=== PATIENT | female | born 1975 | race Caucasian/White ===

== ENCOUNTER → 2017-07-24 | Outpatient (CLI) | payer OTHER ==
[~2017-07-24] MED LIST: CYCL5TAB PO; LABE1TAB28 PO; LORA-741 PO; OMEP10CA4 PO; POLY335019 PO; TAMO20TA9 PO; ZLDI SQ
[2017-07-24 07:38] VITALS: BP 113/76; PULSE 70; TEMP 36.8; O2SAT 98
--- NOTE | 2017-07-24 09:04 | Radiation Oncology Follow-Up ---
Radiation Oncology Follow-Up Date of Visit Jul 24, 2017. 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 She received 6240 cGy. Last Edited By: Tana Gomez on Jul 24, 2017 09:06 History of Present Illness Ms. Ortiz has a fraternal grandmother who was diagnosed with breast cancer in her 40s or 50s and from breast cancer at age 63. The patient was nursing her 1-year- old child when she noted a lump in the left breast and axillary region. She thought it was related to a clogged milk duct been tried massage but the lesion persisted. The patient was therefore scheduled to be seen for evaluation of this area. She underwent diagnostic bilateral mammograms on 08/25/2016. This showed extremely dense breast tissue with pleomorphic calcifications in the upper outer quadrant at the 2 to 3 o'clock position. There were several prominent lymph nodes in the left axilla with thickened cortices. A stereotactic left breast biopsy of the microcalcifications as well as an ultrasound-guided biopsy of the largest lymph node was recommended. Right breast mammogram was unremarkable. On 08/26/2016 patient underwent a biopsy of the upper outer quadrant of the left breast which revealed an infiltrating carcinoma of no special type, grade 2. 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 The biopsy of the left axillary node revealed metastatic carcinoma. The lesion was strongly estrogen receptor positive and weakly progesterone receptor positive. HER-2/georgina" protein expression was equivocal but confirmed negative by FISH analysis. Accession #: [id number]. The patient underwent bilateral breast MRIs with without contrast on 09/02/2016. The right breast showed no suspicious mass or [id number] enhancement seen. In the left breast there was abnormal enhancement in the lateral central left breast at the 2 to 4:00 middle posterior depth measuring at least 5.8 x 2.3 x 5.2 cm. It is thought this may possibly underestimate the extent of disease due to extensive calcification seen on mammogram. Left axillary adenopathy was also noted corresponding to the biopsy- proven infiltrating carcinoma and metastatic axillary lymph node disease. The largest lymph nodes measured 2.1 x 1.1 x 2.7 cm and 1.7 x 1.4 x 1.0 cm. Patient underwent genetic testing and there was no evidence of significant genetic abnormality of BRCA1 or BRCA2. There was a variant of the CHEK2 gene of uncertain significance. Patient was seen by Dr. Jon for evaluation of the role of neoadjuvant chemotherapy. A PET/CT scan was performed on 09/11/2016. This showed metabolically active left lateral breast mass as well as multiple metabolically active left axillary lymph nodes. There was however no evidence of distant metastatic disease appreciated. He recommended dose dense Adriamycin and Cytoxan followed by weekly Paclitaxel. She started treatment on 09/16/2016 and completed treatment on 01/28/2017. Patient had tolerated systemic therapy fairly well. She had a clinical response to treatment. She underwent an MRI of the brain on 01/02/2017. This showed a nonspecific patchy area of T1 hypointensity in the calvarial bone and subtle focus of abnormal signal in the bifrontal sub-cortical white matter. On 02/23/2017 the patient underwent bilateral mastectomies with immediate placement of tissue expanders. The right breast showed fibrocystic changes but no evidence of invasive or in situ carcinoma. The left breast tissue revealed residual invasive carcinoma of no special type, histologic grade 3 measuring 1.9 cm in greatest dimension. 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 Invasive ductal carcinoma was focally& involving the bryant-superior margin. All other resection margins were negative for carcinoma. The closest remaining margin was the posterior margin at 0.3 cm. 2 sentinel lymph nodes were excised revealing metastatic carcinoma with focal extranodal extension in one of the 2 sentinel nodes. An additional 6 nodes were taken as part of a limited dissection and all 6 nodes were positive for metastatic carcinoma. 5 of the lymph nodes contained macro metastatic deposits with 4 containing micrometastatic deposits. Final AJCC pathologic staging was therefore ypT1c ypN2a. There was evidence of lymphovascular invasion. Accession #: [id number]. The patient was to start tamoxifen on 03/11/2017 and was to start Zoladex within the next week or [address] Salvatore Jon. He was planning to get a PET/CT scan in the very near future because of the high risk of metastatic disease given the number of positive axillary lymph nodes. Patient is scheduled to see the reconstructive surgeon to start tissue expansion next week. We were asked to see her today to discuss the role of adjuvant radiation. She completed neoadjuvant chemotherapy. She then completed bilateral mastectomies with reconstruction and placement of tissue expanders. She returned to our office and underwent radiation therapy. Radiation was completed June 25, 2017. She received 6240 cGy. Interim History Over this past month she has had steady improvement of the skin. She does continue to have some mild discomfort in the medial portion of the chest wall. She states this also happens on the right side. She has a small area at the lateral most portion of the incision of the left breast that is slightly raised. This has not changed over the past month. There is no associated discomfort. She has noticed no changes of the overlying skin. She continues on an aromatase inhibitor as well as Zoladex. She denies any persistent skin irritation. She has had no difficulty with range of motion of the arm. Allergies Coded Allergies: Vancomycin (Verified Allergy, Severe, Edema Face/Lips/Tongue , 03/11/17) Chlorhexidine (Verified Allergy, Mild, Unknown, 03/11/17) Ciprofloxacin (Verified Allergy, Mild, Hives, 03/11/17) Isopropyl Alcohol (Verified Allergy, Mild, Unknown, 03/11/17) Penicillins (Verified Allergy, Mild, Hives , 03/11/17) Home Medications Scheduled Goserelin Acetate (Zoladex), 10.8 MG SQ Q3MO Labetalol (Normodyne), 400 MG PO BID Omeprazole (Prilosec), 10 MG PO DAILY Tamoxifen (Nolvadex), 20 MG PO DAILY Scheduled PRN Cyclobenzaprine Hcl (Flexeril), 1 TAB PO TID PRN for Muscle Spasms Lorazepam (Ativan), 0.5 MG PO Q8 PRN for anxiety/insomnia Polyethylene Glycol 3350 (Miralax), 17 GM PO DAILY PRN for Constipation Review of Systems Gastrointestinal: Symptoms: WNL Oral: Symptoms: No Problems Respiratory: Symptoms: WNL Urinary: Symptoms: WNL Skin: Symptoms: No Problems Breast: Right Upper Arm Measurement: 27.5 Right Mid Arm Measurement: 24.0 Right Wrist Measurement: 15.5 Left Upper Arm Measurement: 28.5 Left Mid Arm Measurement: 23.5 Left Wrist Measurement: 15.5 Arm Dominence: Right Patient Cosmetic Evaluation: Good Staff Cosmetic Evalaluation: Good Additional Notes: She completed a distress management report and answered "no" to all questions other than she continues to have fears and worries about her diagnosis. Physical Exam Vital Signs Date Time Temp Pulse Resp B/P (MAP) Pulse Ox O2 Delivery O2 Flow Rate FiO2 07/24/17 07:38 36.8 70 16 113/76 98 Fatigue: None General Appearance: no apparent distress Eyes: normal inspection, EOMI ENT: normal ENT inspection, hearing grossly normal Neck: no adenopathy, thyroid normal Respiratory/Chest: lungs clear, no respiratory distress, no accessory muscle use Breast: Breast examination reveals bilateral tissue expanders. There is resolving hyperpigmentation on the left. There are no masses or tenderness and no axillary adenopathy. She has a small area that is palpable at the lateral most portion of the incision. This feels to be associated with the underlying tissue patternmaker. Using the [place] score of cosmesis she has a good outcome. She has excellent symmetry of the breasts. On the right there were no masses or tenderness and no axillary adenopathy. Cardiovascular: regular rate, rhythm, no gallop, no murmur Extremities: no pedal edema Neurologic/Psychiatric: no motor/sensory deficits, alert, normal mood/affect Pain Management Patient Reports Pain: No Side: Bilateral Patient Preferred Pain Scale: 0 - 10 Initial Pain Intensity: 0.0 Pain Management Plan She did not give a pain level to the mild discomfort she feels of the central chest area. This does not require any pain management. Laboratory Laboratory Results: not applicable Pathology Pathology Results: were reviewed, and pertinent findings noted in HPI Imaging Imaging Studies: were reviewed, and pertinent findings noted in HPI Assessment & Plan Plan: Patient is also seen and examined by Dr. Jon. She will continue regular follow-up with medical oncology, her breast surgeon and plastic surgeon as well as family practice physician. There has been discussion of placement of the permanent tissue expanders in September. She is going to discuss that further with the plastic surgeon. She continues on anti-estrogen therapy. Recheck laboratory studies and scanning would be per medical oncology. This was reviewed with her. She was given reassurance that guidelines are being followed in regards to follow-up treatment. Today we completed cancer survivorship care plan. A copy of the document was given to the patient. She was also given a survivorship booklet. We asked her to return to our office in 6 months. She may call if she has any questions or concerns in the interim. Assessment & Plan (Attending) I agree with note created by Tana Gomez PA-C. I reviewed the patient's chart and information with her. I have examined and evaluated the patient. I reviewed relevant clinical information and answered the patient's and/or family' s questions. 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 I spent 20 minutes reviewing information, preparing the survivorship document, and completing this note. AK Total Time (Attending) In Follow-Up I spent 15 minutes examining and counseling the patient. LOCOMOTIVE ENGINE[employer]IESEL Copy To Josefina Morton MD; Vale Arnett D.O.; Salvatore Jon M.D.; Timmy Munoz MD
== END | disposition home or self-care (01) ==
LOC: C.ONC 07:28
PROVIDERS: ATTEND Physician Assistant Medical
DX: Z08 Encounter for follow-up examination after completed treatment for malignant neoplasm (principal); Z92.3 Personal history of irradiation; Z85.3 Personal history of malignant neoplasm of breast

== ENCOUNTER → 2017-08-04 | Outpatient (CLI) | payer OTHER | END | disposition home or self-care (01) | LOC: C.ONC 07:50 | PROVIDERS: ATTEND Physician Assistant Medical ==

== ENCOUNTER 2020-04-25 14:08 | Inpatient (IN) ==
--- NOTE | 2020-04-25 16:13 | Emergency Department Note ---
History of Present Illness General Chief complaint: Infection Stated complaint: ALLERGIC REACTION A RADIATION SITE Time Seen by Provider: 04/25/20 15:11 History of Present Illness Maximum Pain Intensity: 8 Patient is a 45-year-old female with past medical history significant for recurrent breast cancer who presents the emergency department at the request of radiation oncology for evaluation of an infection involving her left chest wall. Patient has a history of left breast cancer, initially treated with chemotherapy and radiation, she subsequently underwent bilateral mastectomy and placement of tissue expanders. She underwent bilateral TRAM flap reconstruction. Unfortunately she was recently diagnosed with a recurrent left breast cancer. She underwent excision x2 in January of this year. She just finished 24 cycles of radiation to the area. She states that her last radiation treatment was 1 week ago. She notes the site on the left lateral chest wall receiving the radiation "turned black" during treatment, which she was reassured was normal. She was applying topical lotions including Aquaphor to the area. Within the last 4 to 5 days, she noticed that the skin started to slough off, she also began to notice some drainage and discharge from the site, with crust ing noted on her clothing and on bandages. Yesterday she noticed increased drainage from the area and noted that it was becoming more tender. She was seen by Dar Gomez PA-C with Radiation Oncology yesterday. She was started on Bactrim DS, she has had a total of 2 doses of the Bactrim. Per discussion with Jason ALMANZA, she obtained a culture from the area which is pending. The patient states that since starting antibiotics, she has noticed increased chest wall discomfort, states that the left chest and breast are itchy, and she has had spreading redness. She tried applying a topical hydrocortisone cream to the area. She notes chills and cold sweats, but has not documented a fever. There is no prior history of skin infections or abscesses. She was referred to the emergency department for evaluation and IV antibiotics. Home Medications Medication Instructions Recorded Confirmed Type diazepam 5 mg tablet 5 mg PO BID 01/24/20 04/25/20 History anastrozole 1 mg tablet 1 mg PO DAILY 02/28/20 04/25/20 History calcium carbonate-vitamin D3 600 1 tab PO DAILY tab 02/28/20 04/25/20 History mg(1,500 mg)-400 unit chewable tablet cholecalciferol (vitamin D3) 25 25 mcg PO DAILY 02/28/20 04/25/20 History mcg (1,000 unit) tablet sulfamethoxazole 800 1 tab PO BID #20 tab 04/24/20 04/25/20 Rx mg-trimethoprim 160 mg tablet goserelin [Zoladex] 10.8 mg SUBCUT .[id number] 04/25/20 04/25/20 History labetalol 400 mg PO BID 04/25/20 04/25/20 History Allergies Allergy/AdvReac Type Severity Reaction Status Date / Time vancomycin Allergy Severe Edema Verified 04/25/20 17:22 Face/Lips/Tongue "Red Man Syndrome" chlorhexidine Allergy Mild Unknown Verified 04/25/20 17:22 Cipro Allergy Mild Hives Verified 03/11/17 10:45 ciprofloxacin Allergy Mild Hives Verified 04/25/20 17:22 isopropyl alcohol Allergy Mild Unknown Verified 04/25/20 17:22 Penicillins Allergy Mild Hives Verified 04/25/20 17:22 Past Med/Surg History Medical History Abnormal breast biopsy (02/01/20) Breast cancer Hypertension Surgical History H/O bilateral mastectomy (~02/2017) History of lumpectomy of left breast (02/15/20) Status post transverse rectus abdominis muscle flap breast reconstruction (~10/2017) Social History Smoking Status: Never smoker Preferred Language: Turkmen Beliefs That Will Affect Care: None Feels Safe at Home: Yes Review of Systems A total of 10 systems reviewed and were otherwise negative Physical Exam Vital Signs Vital Signs - 24 hr 04/25/20 14:19 04/25/20 15:52 04/25/20 15:53 Temperature 36.8 C Temperature Source Oral Pulse Rate 95 H 76 Pulse Rate [Apical] 70 Pulse Rate from SpO2 Sensor 76 Respiratory Rate 18 24 20 Respiratory Effort / Characteristics Non-Labored Respiratory Depth Normal Blood Pressure 171/100 H 178/103 H Blood Pressure [Right Arm] 178/103 H Blood Pressure Mean 123 132 Blood Pressure Mean [Right Arm] 128 Pulse Oximetry 94 98 97 Oxygen Delivery Method Room Air Sepsis Recent Fever Within 48 Hours No Sepsis New/Unexplained Change in Mental Status No Sepsis Action Taken by Nursing No Action Required 04/25/20 15:56 04/25/20 16:00 04/25/20 16:30 Temperature Temperature Source Pulse Rate 69 72 68 Pulse Rate [Apical] Pulse Rate from SpO2 Sensor 71 65 Respiratory Rate 12 17 13 Respiratory Effort / Characteristics Respiratory Depth Blood Pressure 151/89 H Blood Pressure [Right Arm] Blood Pressure Mean 108 Blood Pressure Mean [Right Arm] Pulse Oximetry 99 98 Oxygen Delivery Method Sepsis Recent Fever Within 48 Hours Sepsis New/Unexplained Change in Mental Status Sepsis Action Taken by Nursing 04/25/20 17:00 04/25/20 17:13 Temperature Temperature Source Pulse Rate 80 74 Pulse Rate [Apical] Pulse Rate from SpO2 Sensor Respiratory Rate 16 13 Respiratory Effort / Characteristics Respiratory Depth Blood Pressure 168/106 H 172/105 H Blood Pressure [Right Arm] Blood Pressure Mean 128 137 Blood Pressure Mean [Right Arm] Pulse Oximetry Oxygen Delivery Method Sepsis Recent Fever Within 48 Hours Sepsis New/Unexplained Change in Mental Status Sepsis Action Taken by Nursing CONSTITUTIONAL: Patient is a tearful, slightly anxious 45-year-old female who is awake and alert and in no acute distress. Vital signs are stable. EYES: Pupils equal, round, reactive to light and accommodation. EOMs intact without nystagmus. Sclera are anicteric. ENT: Tympanic membranes intact, with normal landmarks. External canals are clear. Oral and nasopharynx are clear. Mucous membranes are moist, no lesions, tongue and gums appear normal. CARDIOVASCULAR: Regular rate and rhythm. Peripheral pulses easily palpable. RESPIRATORY: Breath sounds equal and clear to auscultation without wheezes, rales, or rhonchi heard. Full and equal chest expansion without accessory muscle use or retractions. INTEGUMENTARY: Examination of the left chest wall note postsurgical changes of the left breast. Lateral to the left breast, inferior to the axilla, she has a large open wound, with central granulation and mucopurulent discharge present. It is tender to palpation. No overt fluctuance or abscess appreciated. The entire left chest wall, inferior to the breast, to the midline of the sternum, and to the clavicle are erythematous, and warm. The left chest wall is tender to palpation. Course Course The patient was seen and assessed as above. Her old records were reviewed. I was able to speak with Ronna Jeffery PA-C, who is familiar with the patient. She reported to me that a superficial wound culture is pending from yesterday. Discussed with her ED work-up, and she was in agreement. IV lock was initiated and laboratory studies were collected. CBC with differential, CMP, urinalysis, blood cultures x2 and lactic acid were drawn. Patient history and presentation were reviewed with ED pharmacist, Willy Patel, antibiotic regimen was reviewed with him. He did review the culture, which is g rowing pinpoint gram-positive cocci. Upon review of her record, he recommended IV daptomycin, 4 mg/kg. This was ordered. Laboratory studies noted a 1 normal white count at 4600, no left shift, no b andemia. She is not anemic. Electrolytes are within normal limits. BUN 6, creatinine 0.83. Transaminases are not elevated. Her lactate is elevated at 2.9. IV hydration was ordered, 2 L of normal saline solution were ordered. The patient was made aware of the results of her emergency department work-up, and recommendation for hospitalization for IV antibiotics. She was in agreement. Patient history and presentation were reviewed with attending physician. Consultation was placed with the [facility] Service for further care and management. A rapid Covid swab was obtained for admission purposes and was negative. Administered Medications Sodium Chloride (Nss 1000ml) 1,000 mls @ 999 mls/hr IV .[id number] SHANIA Stop: 04/25/20 18:47 Last Admin: 04/25/20 17:00 Dose: 999 mls/hr Documented by: [id number] Discontinued Medications Daptomycin 225 mg/ Syringe 4.5 mls @ 2.25 mls/min IV NOW ONE; Protocol Stop: 04/25/20 16:37 Last Admin: 04/25/20 17:08 Dose: 2.25 mls/min Documented by: [id number] Medical Decision Making Differential Diagnosis Differential diagnoses entertained included cellulitis, abscess, necrotizing fasciitis, TRAM reconstruction failure, sepsis, among others. Medical Records Attestation: I reviewed the patient's medical records. Home Medications Current Medication List: was personally reviewed by me Laboratory Data Attestation: I reviewed the patient's lab results. Result diagrams: 04/25/20 16:08 04/25/20 16:08 Lab Results 04/25/20 04/25/20 04/25/20 Range/Units 16:08 16:08 16:08 WBC 4.62 L (4.8-10.8) K/uL RBC 4.36 (4.2-5.4) M/uL Hgb 12.6 (12.0-16.0) g/dL Hct 37.6 (37-47) % MCV 86.2 (80-100) fL MCH 28.9 (25-34) pg MCHC 33.5 (32-36) g/dL RDW Std Deviation 42.3 (36.4-46.3) fL RDW Coeff of Jak 13.4 (11.5-14.5) % Plt Count 271 (130-400) K/uL MPV 10.9 H (7.4-10.4) fL Immature Gran % (Auto) 0.0 % Neut % (Auto) 67.1 % Lymph % (Auto) 14.1 % Saunders % (Auto) 9.3 % Eos % (Auto) 8.9 % Baso % (Auto) 0.6 % Neut # (Auto) 3.10 (1.4-6.5) K/uL Lymph # (Auto) 0.65 L (1.2-3.4) K/uL Saunders # (Auto) 0.43 (0.11-0.59) K/uL Eos # (Auto) 0.41 (0-0.5) K/uL Baso # (Auto) 0.03 (0-0.2) K/uL Immature Gran # (Auto) 0.00 (0.00-0.02) K/uL Sodium 143 (136-145) mmol/L Potassium 3.8 (3.5-5.1) mmol/L Chloride 107 (98-107) mmol/L Carbon Dioxide 28 (21-32) mmol/L Anion Gap 8.0 (3-11) BUN 6 L (7-18) mg/dl Creatinine 0.83 (0.6-1.2) mg/dl Est Cr Clr Drug Dosing 74.7 ml/min Est GFR ( Amer) 99.4 Est GFR (Non-Af Amer) 85.8 BUN/Creatinine Ratio 7.4 L (10-20) Glucose 83 (70-99) mg/dl Lactate (0.4-2.0) mmol/L Calcium 9.3 (8.5-10.1) mg/dl Total Bilirubin 0.7 (0.2-1) mg/dl AST 23 (15-37) U/L ALT 36 (12-78) U/L Alkaline Phosphatase 79 (45-117) U/L Total Protein 7.0 (6.4-8.2) gm/dl Albumin 4.2 (3.4-5.0) gm/dl Globulin 2.8 (2.5-4.0) gm/dl Albumin/Globulin Ratio 1.5 (0.9-2) HCG, Qual Negative (Negative) SARS-CoV-2 Ag (Rapid) (Negative) 04/25/20 04/25/20 Range/Units 16:08 Unknown WBC (4.8-10.8) K/uL RBC (4.2-5.4) M/uL Hgb (12.0-16.0) g/dL Hct (37-47) % MCV (80-100) fL MCH (25-34) pg MCHC (32-36) g/dL RDW Std Deviation (36.4-46.3) fL RDW Coeff of Jak (11.5-14.5) % Plt Count (130-400) K/uL MPV (7.4-10.4) fL Immature Gran % (Auto) % Neut % (Auto) % Lymph % (Auto) % Saunders % (Auto) % Eos % (Auto) % Baso % (Auto) % Neut # (Auto) (1.4-6.5) K/uL Lymph # (Auto) (1.2-3.4) K/uL Saunders # (Auto) (0.11-0.59) K/uL Eos # (Auto) (0-0.5) K/uL Baso # (Auto) (0-0.2) K/uL Immature Gran # (Auto) (0.00-0.02) K/uL Sodium (136-145) mmol/L Potassium (3.5-5.1) mmol/L Chloride (98-107) mmol/L Carbon Dioxide (21-32) mmol/L Anion Gap (3-11) BUN (7-18) mg/dl Creatinine (0.6-1.2) mg/dl Est Cr Clr Drug Dosing ml/min Est GFR ( Amer) Est GFR (Non-Af Amer) BUN/Creatinine Ratio (10-20) Glucose (70-99) mg/dl Lactate 2.9 H* (0.4-2.0) mmol/L Calcium (8.5-10.1) mg/dl Total Bilirubin (0.2-1) mg/dl AST (15-37) U/L ALT (12-78) U/L Alkaline Phosphatase (45-117) U/L Total Protein (6.4-8.2) gm/dl Albumin (3.4-5.0) gm/dl Globulin (2.5-4.0) gm/dl Albumin/Globulin Ratio (0.9-2) HCG, Qual (Negative) SARS-CoV-2 Ag (Rapid) Negative (Negative) MDM Narrative See ED Course. Impression & Plan Cellulitis of chest wall Discharge Plan Visit Data Chief Complaint: Infection Stated Complaint: ALLERGIC REACTION A RADIATION SITE ED Provider: Yrn Ortega ED Midlevel Provider: Kalani Canales Discharge Problem: Cellulitis of chest wall Patient Disposition: Being Evaluated by Hospitalist Forms Stand Alone Forms: My [facility] Prescriptions Prescriptions: No Action diazepam 5 mg tablet 5 mg PO BID RF: 0 Calcium 600 with Vitamin D3 600 mg(1,500mg) -400 unit tablet,chewable 1 tab PO DAILY RF: 0 cholecalciferol (vitamin D3) 25 mcg (1,000 unit) tablet 25 mcg PO DAILY RF: 0 anastrozole [Arimidex] 1 mg tablet 1 mg PO DAILY RF: 0 sulfamethoxazole-trimethoprim [Bactrim DS] 800-160 mg tablet 1 tab PO BID Qty: 20 RF: 0 labetalol 200 mg tablet 400 mg PO BID RF: 0 Zoladex 10.8 mg Implant 10.8 mg SUBCUT .[id number] RF: 0 Referrals Referrals: Carmelo Antony MD [Primary Care Provider] -
[2020-04-25 16:18] LABS: Basophils # (auto) 0.03 K/uL (0-0.2); Basophils % (auto) 0.6 %; Eosinophils # (auto) 0.41 K/uL (0-0.5); Eosinophils % (auto) 8.9 %; Hematocrit (blood only) 37.6 % (37-47); Hemoglobin 12.6 g/dL (12.0-16.0); Lymphocytes # (auto) 0.65 K/uL (1.2-3.4); Lymphocytes % (auto) 14.1 %; Mean Corpuscular Hemoglobin 28.9 pg (25-34); Mean Corpuscular Hgb Conc 33.5 g/dL (32-36); Mean Corpuscular Volume 86.2 fL (80-100); Mean Platelet Volume 10.9 fL (7.4-10.4); Monocytes # (auto) 0.43 K/uL (0.11-0.59); Monocytes % (auto) 9.3 %; Neutrophils % (auto) 67.1 %; Platelet Count 271 K/uL (130-400); RDW Coefficient of Variation 13.4 % (11.5-14.5); RDW Standard Deviation 42.3 fL (36.4-46.3); Red Blood Count 4.36 M/uL (4.2-5.4); White Blood Count 4.62 K/uL (4.8-10.8)
[2020-04-25] MEDS ORDERED: DAPTOmycin 225 MG in SYRINGE 0 ML IV ONE (16:36)
[2020-04-25 16:39] LABS: Pregnancy Test, Serum Negative (Negative)
[2020-04-25 16:45] LABS: Albumin Level 4.2 gm/dl (3.4-5.0); BUN Creatinine Ratio 7.4 (10-20); Calcium 9.3 mg/dl (8.5-10.1); Creatinine Clr Calc Pharmacy 74.7 ml/min; Est GFR (African American) 99.4; Est GFR (Non-African American) 85.8; Potassium 3.8 mmol/L (3.5-5.1)
[2020-04-25 16:47] LABS: Albumin Globulin Ratio 1.5 (0.9-2); Bilirubin,Total 0.7 mg/dl (0.2-1); Globulin 2.8 gm/dl (2.5-4.0)
[2020-04-25] MEDS: SODIUM CHLORIDE 0.9% 1000ML 1,000 ML IV SCH ×3 (17:00→21:54)
--- NOTE | 2020-04-25 17:05 | History & Physical Report ---
Date of Service April 25, 2020 Assessment & Plan (1) Cellulitis of chest wall: Left chest wall cellulitis Possible abscess S/P Radiation--Last received on April 17, 2020 Lactic acid:2.9 COVID screen:Negative Wound Cx: obtained on 04/24/20--Pending Will obtain CT chest Start on broad-spectrum antibiotics with daptomycin, Azactam (Taking in consideration of her allergies) Continue IV fluids Trend lactate levels Consulted infectious disease, surgery Wound care consulted as well Check MRSA screen Dysuria UA not suggestive of UTI Monitor Hypertensive urgency Likely situational Continue labetalol Hydralazine as needed H/O metastatic recurrent left breast cancer S/P chemotherapy, bilateral mastectomy, radiation Continue anastrozole Continue Zoladex--Next due ton Jun [address] Salvatore Jon and Dr. Louie Jon GERD Continue PPI Generalized anxiety disorder Continue diazepam DVT Px: Lovenox SQ CODE STATUS Full code Disposition Expected discharge home when medically stable History of Present Illness Chief Complaint: Chest Wall Wound Primary Care Provider: Carmelo Antony MD Patient is a 45-year-old female with history of metastatic left breast cancer, hypertension, generalized anxiety disorder and other medical problems presents with history of left-sided chest wall wound. Patient had complex medical history, she was diagnosed to have metastatic left breast carcinoma in 2017. She completed chemotherapy, S/P bilateral mastectomy followed by breast reconstruction. Also completed radiation therapy last received on April 17, 2020. After having her last radiation therapy she noticed black eschar on her left side of her chest which later peeled off. Over the weekend, patient noticed to have seeping purulent discharge from the area and was evaluated by radiation oncologist who recommended to be started on Bactrim on Thursday. She admits to having left-sided chest tenderness, chills, and feels uncomfortable with stabbing intermittent pain in the area. On further evaluation of the wound today, patient was instructed to be evaluated in ED for possible IV antibiotics. She also states noting chest wall to be erythematous which is slightly worse since 2 days and reports associated itching. She admits to have dysuria, but denies any urinary frequency or hematuria. Reports having chronic intermittent abdominal discomfort which is unchanged. She had an episode of diarrhea this morning which currently resolved. Denies any history of SOB, palpitations, orthopnea, PND, dizziness, pedal edema, diaphoresis, cough, wheezing, hemoptysis, headache, numbness, change in vision, nausea, vomiting, blood in stools. Allergies Allergy/AdvReac Type Severity Reaction Status Date / Time vancomycin Allergy Severe Edema Verified 04/25/20 17:22 Face/Lips/Tongue "Red Man Syndrome" chlorhexidine Allergy Mild Unknown Verified 04/25/20 17:22 Cipro Allergy Mild Hives Verified 03/11/17 10:45 ciprofloxacin Allergy Mild Hives Verified 04/25/20 17:22 isopropyl alcohol Allergy Mild Unknown Verified 04/25/20 17:22 Penicillins Allergy Mild Hives Verified 04/25/20 17:22 Home Medications Medication Instructions Recorded Confirmed Type diazepam 5 mg tablet 5 mg PO BID 01/24/20 04/25/20 History anastrozole 1 mg tablet 1 mg PO DAILY 02/28/20 04/25/20 History calcium carbonate-vitamin D3 600 1 tab PO DAILY tab 02/28/20 04/25/20 History mg(1,500 mg)-400 unit chewable tablet cholecalciferol (vitamin D3) 25 25 mcg PO DAILY 02/28/20 04/25/20 History mcg (1,000 unit) tablet sulfamethoxazole 800 1 tab PO BID #20 tab 04/24/20 04/25/20 Rx mg-trimethoprim 160 mg tablet goserelin [Zoladex] 10.8 mg SUBCUT .[id number] 04/25/20 04/25/20 History labetalol 400 mg PO BID 04/25/20 04/25/20 History Past Med/Surg History Medical History Abnormal breast biopsy (02/01/20) Breast cancer Hypertension Surgical History H/O bilateral mastectomy (~02/2017) History of lumpectomy of left breast (02/15/20) Status post transverse rectus abdominis muscle flap breast reconstruction (~10/2017) Family History Mother Breast cancer Father Leukemia Social History Smoking Status: Former smoker Hx Alcohol Use: No Preferred Language: Greenlandic Beliefs That Will Affect Care: None Feels Safe at Home: Yes Review of Systems Review of Systems: All systems reviewed & are unremarkable except as noted in HPI & below Physical Exam Physical Exam: Physical Exam: Vitals signs as noted above General Appearance:Moderately built and nourished, no apparent distress Head: normocephalic, Atraumatic Eyes: normal inspection, EOMI, PERRL Neck: supple, Trachea midline Respiratory/Chest: Normal breath sounds, CTA, No accessory muscle use + Left inferior axillary region, open mucopurulent wound, +Tenderness, Mild erythema Cardiovascular: S1, S2, No murmur Abdomen/GI:Soft, Non tender, Bowel sounds present Extremities/Musculoskelatal:normal inspection, no edema Neurologic/Psych:AAOX3, grossly no focal neurological deficits Skin: normal color, warm Results & Data Results & Data ([facility]) Vital Signs (Past 12 Hours) Vital Signs Temp Pulse Pulse Resp BP BP Pulse Ox 04/25/20 15:53 70 20 178/103 H 97 04/25/20 14:19 36.8 C 95 H 18 171/100 H 94 Laboratory Results Short CBC 04/25/20 Range/Units 16:08 WBC 4.62 L (4.8-10.8) K/uL Hgb 12.6 (12.0-16.0) g/dL Hct 37.6 (37-47) % Plt Count 271 (130-400) K/uL BMP 04/25/20 16:08 Sodium 143 Potassium 3.8 Chloride 107 Carbon Dioxide 28 BUN 6 L Creatinine 0.83 Glucose 83 Calcium 9.3 Liver Function 04/25/20 Range/Units 16:08 Total Bilirubin 0.7 (0.2-1) mg/dl AST 23 (15-37) U/L ALT 36 (12-78) U/L Alkaline Phosphatase 79 (45-117) U/L Albumin 4.2 (3.4-5.0) gm/dl Diagnostic Findings Chest CT pending Medications Administered Home Medications Medication Instructions Recorded Confirmed diazepam 5 mg tablet 5 mg PO BID 01/24/20 04/25/20 anastrozole 1 mg tablet 1 mg PO DAILY 02/28/20 04/25/20 calcium carbonate-vitamin D3 600 1 tab PO DAILY tab 02/28/20 04/25/20 mg(1,500 mg)-400 unit chewable tablet cholecalciferol (vitamin D3) 25 25 mcg PO DAILY 02/28/20 04/25/20 mcg (1,000 unit) tablet goserelin [Zoladex] 10.8 mg SUBCUT .[id number] 04/25/20 04/25/20 labetalol 400 mg PO BID 04/25/20 04/25/20 Previous Rx's Medication Instructions Recorded sulfamethoxazole 800 1 tab PO BID #20 tab 04/24/20 mg-trimethoprim 160 mg tablet
[2020-04-25] MEDS ORDERED: IOVERSOL 100ml IV ONE (18:00)
--- NOTE | 2020-04-25 18:44 | CT Scan Report ---
CT SCAN OF THE CHEST WITH IV CONTRAST CLINICAL HISTORY: Chest wall cellulitis. History of breast cancer. COMPARISON STUDY: PET CT dated 01/27/2020. TECHNIQUE: Following the IV administration of 93 cc of Optiray 320, CT scan of the thorax was perform ed from the thoracic inlet to the upper abdomen. Images are reviewed in the axial, sagittal, and cornelio nal planes. IV contrast was administered without complication. A dose lowering technique was utilize d adhering to the principles of ALARA. CT DOSE: 216.42 mGy.cm FINDINGS: Soft tissues: There is postoperative change from bilateral mastectomy and breast reconstruction. Derm al thickening and soft tissue inflammation is identified in the lateral left breast and infraaxillary soft tissues. There is an encapsulated and peripherally enhancing fluid collection at this site seen between the skin surface and the pectoral muscle on image #122. This measures 4.8 x 2.4 x 1.5 cm. Mi ld dermal thickening is also noted overlying the right axillary soft tissues is seen on image #58. Thyroid: Imaged portions of the thyroid gland are normal in size and attenuation. Thoracic aorta: The thoracic aorta is normal in caliber and demonstrates standard 3-vessel arch anato my. No dissection is seen. Pulmonary vasculature: The pulmonary trunk is normal in caliber. There are no filling defects identif ied in the central pulmonary vessels to indicate pulmonary embolus. Note that this examination was no t protocoled for evaluation of the pulmonary arteries. Heart: A right subclavian central venous infusion port is in place. The heart is normal in size and w ithout pericardial effusion. Lungs and pleural spaces: There is no airspace consolidation or pleural effusion. Small fat-containin g Bochdalek hernias are noted at both lung bases. The trachea and central airways are clear. Subpleur al scarring is noted at the left apex and may be treatment related. A low suspicion 4 mm pleural-base d nodule at the left lung base is seen on image #275. Mediastinum: There is no mediastinal lymphadenopathy. Gin: Clear. Axillae: A 1.7 cm round low-attenuation structure seen in the right axilla on image #66. This could r epresent a tiny fluid collection versus necrotic lymph node. No additional enlarged axillary lymph no belle are suggested bilaterally. Upper abdomen: There is a small hiatal hernia. Partially visualized upper abdominal viscera is otherw ise within normal limits. Skeletal structures: No lytic or blastic bony lesions are seen. There is a healed left second rib fra cture. IMPRESSION: 1. There is postoperative change from bilateral mastectomy and breast reconstruction. 2. Dermal thickening and soft tissue inflammation is identified in the lateral left breast/infraaxill harry soft tissues. This is consistent with the reported history of cellulitis. 3. There is a 4.8 x 2.4 x 1.5 cm encapsulated fluid collection at this site between the skin surface and the left pectoral muscle. This could represent a seroma or possibly abscess and clinical correlat ion will be essential. 4. There is a 1.7 cm fluid collection versus necrotic lymph node identified in the right axillary sof t tissues with mild overlying dermal thickening. 5. The lungs are clear. 6. Additional findings as above. ACT 112: Negative or not required by law. Electronically signed by: Yrn Hood M.D. 04/25/2020 6:42 PM
[2020-04-25 18:45] LABS: Appearance Urine Clear (Clear); Bilirubin Urine Negative (Negative); Blood Urine Negative (Negative); Color Urine Yellow; Glucose Urine UA Negative (Negative); Ketones Urine 1+ (Negative); Leukocyte Esterase Urine Negative (Negative); Nitrite Urine Negative (Negative); Protein Urine Negative (Negative); Specific Gravity Urine 1.014 (1.000-1.030); Urobilinogen Urine Negative (Negative); pH Urine 5.5 (4.5-7.5)
[2020-04-25] MEDS ORDERED: CONSULT PHARMACY STA (18:45)
[2020-04-25] MEDS ORDERED: AZTREONAM 2,000 MG in DEXTROSE 5% 100 ML IV STA (18:59)
[2020-04-25] MEDS ORDERED: AZTREONAM CONSULT ACTIVE PRN (19:00)
[2020-04-25] MEDS ORDERED: hydrALAZINE 10 MG TAB PO PRN (20:58)
[2020-04-25] MEDS ORDERED: ONDANSETRON INJ 2 MG/ML 2 ML VIAL IV PRN (20:58)
[2020-04-25] MEDS ORDERED: POLYETHYLENE (MIRALAX) 17 GM PACK PO PRN (20:58)
[2020-04-25] MEDS ORDERED: ACETAMINOPHEN 325 MG TAB PO PRN (20:58)
[2020-04-25] MEDS: diazePAM 5 MG TABLET PO SCH (21:53)
[2020-04-25] MEDS: LABETALOL HCL 200 MG TAB PO SCH (21:53)
[2020-04-25] MEDS ORDERED: LORATADINE 10 MG TAB PO ONE (23:00)
[2020-04-25] MEDS ORDERED: diphenhydrAMINE Capsule 25 MG CAP PO ONE (23:00)
[2020-04-25] MEDS ORDERED: diphenhydrAMINE Capsule 25 MG CAP ONE (23:20)
[2020-04-26] MEDS: AZTREONAM 2,000 MG in DEXTROSE 5% 100 ML IV SCH ×2 (04:25→13:42)
[2020-04-26] MEDS: SODIUM CHLORIDE 0.9% 1000ML 1,000 ML IV SCH (05:56)
[2020-04-26 07:34] LABS: Basophils # (auto) 0.04 K/uL (0-0.2); Basophils % (auto) 1.2 %; Eosinophils # (auto) 0.32 K/uL (0-0.5); Eosinophils % (auto) 9.6 %; Hematocrit (blood only) 34.9 % (37-47); Hemoglobin 11.7 g/dL (12.0-16.0); Lymphocytes # (auto) 0.75 K/uL (1.2-3.4); Lymphocytes % (auto) 22.5 %; Mean Corpuscular Hemoglobin 29.1 pg (25-34); Mean Corpuscular Hgb Conc 33.5 g/dL (32-36); Mean Corpuscular Volume 86.8 fL (80-100); Mean Platelet Volume 10.4 fL (7.4-10.4); Monocytes # (auto) 0.25 K/uL (0.11-0.59); Monocytes % (auto) 7.5 %; Neutrophils # (auto) 1.98 K/uL (1.4-6.5); Neutrophils % (auto) 59.2 %; Platelet Count 229 K/uL (130-400); RDW Coefficient of Variation 13.5 % (11.5-14.5); RDW Standard Deviation 43.1 fL (36.4-46.3); Red Blood Count 4.02 M/uL (4.2-5.4); White Blood Count 3.34 K/uL (4.8-10.8)
[2020-04-26 08:01] LABS: BUN Creatinine Ratio 6.5 (10-20); Calcium 9.3 mg/dl (8.5-10.1); Creatinine Clr Calc Pharmacy 88.7 ml/min; Est GFR (African American) 107.2; Est GFR (Non-African American) 92.5; Magnesium 2.1 mg/dl (1.8-2.4); Potassium 3.8 mmol/L (3.5-5.1)
[2020-04-26] MEDS: PANTOprazole 40 MG TAB PO SCH (09:44)
[2020-04-26] MEDS: LABETALOL HCL 200 MG TAB PO SCH ×2 (09:44→21:04)
[2020-04-26] MEDS: CHOLECALCIFEROL 1,000 UNITS 25 MCG TAB PO SCH (09:44)
[2020-04-26] MEDS: diazePAM 5 MG TABLET PO SCH ×2 (09:45→21:03)
[2020-04-26] MEDS: ANASTROZOLE 1 MG TAB PO SCH (09:45)
[2020-04-26] MEDS: CALCIUM 600MG + VIT D 400 IU TAB PO SCH (09:45)
[2020-04-26] MEDS: ENOXAPARIN INJ 40 MG/0.4 ML SYR SQ SCH (09:46)
--- NOTE | 2020-04-26 11:16 | Surgery Consultation ---
Date of Consultation April 26, 2020 Assessment & Plan (1) Cellulitis of chest wall: pt is a 45 year-old female who was admitted to hospital for left chest wall infection after radiation IMP: left chest wall infection base on physical exam and labs, CT scan, left chest wall cellulitis most, could not R/O fluid collection or abscess, base on the radiation history, once make incision on chest wall, which is difficulty to heal, I recommend conservative treatment first, IV antibiotic, F/U 12-24 hours, pt may need I/D on left chest wall if pt's symptoms are getting worse. pt agrees with the plan, I answered all questions, will F/U Present on Admission?: Yes History of Present Illness Attending Physician: Brayan Harp MD History of Present Illness Chief Complaint: Chest Wall Wound Primary Care Provider: Carmelo Antony MD Patient is a 45-year-old female with history of metastatic left breast cancer, hypertension, generalized anxiety disorder and other medical problems presents with history of left-sided chest wall wound. Patient had complex medical history, she was diagnosed to have metastatic left breast carcinoma in 2017. She completed chemotherapy, S/P bilateral mastectomy followed by breast reconstruction. Also completed radiation therapy last received on April 17, 2020. After having her last radiation therapy she noticed black eschar on her left side of her chest which later peeled off. Over the weekend, patient noticed to have seeping purulent discharge from the area and was evaluated by radiation oncologist who recommended to be started on Bactrim on Thursday. She admits to having left-sided chest tenderness, chills, and feels uncomfortable with stabbing intermittent pain in the area. On further evaluation of the wound today, patient was instructed to be evaluated in ED for possible IV antibiotics. She also states noting chest wall to be erythematous which is slightly worse since 2 days and reports associated itching. She admits to have dysuria, but denies any urinary frequency or hematuria. Reports having chronic intermittent abdominal discomfort which is unchanged. She had an episode of diarrhea this morning which currently resolved. Denies any history of SOB, palpitations, orthopnea, PND, dizziness, pedal edema, diaphoresis, cough, wheezing, hemoptysis, headache, numbness, change in vision, nausea, vomiting, blood in stools. I ( [place] mD ) got a call for consult left chest wall infection, I reviewed pt's H/P, labs, CT scan with pt. Allergies Allergy/AdvReac Type Severity Reaction Status Date / Time vancomycin Allergy Severe Edema Verified 04/25/20 17:22 Face/Lips/Tongue "Red Man Syndrome" chlorhexidine Allergy Mild Unknown Verified 04/25/20 17:22 Cipro Allergy Mild Hives Verified 03/11/17 10:45 ciprofloxacin Allergy Mild Hives Verified 04/25/20 17:22 isopropyl alcohol Allergy Mild Unknown Verified 04/25/20 17:22 Penicillins Allergy Mild Hives Verified 04/25/20 17:22 Home Medications Medication Instructions Recorded Confirmed Type diazepam 5 mg tablet 5 mg PO BID 01/24/20 04/25/20 History anastrozole 1 mg tablet 1 mg PO DAILY 02/28/20 04/25/20 History calcium carbonate-vitamin D3 600 1 tab PO DAILY tab 02/28/20 04/25/20 History mg(1,500 mg)-400 unit chewable tablet cholecalciferol (vitamin D3) 25 25 mcg PO DAILY 02/28/20 04/25/20 History mcg (1,000 unit) tablet sulfamethoxazole 800 1 tab PO BID #20 tab 04/24/20 04/25/20 Rx mg-trimethoprim 160 mg tablet goserelin [Zoladex] 10.8 mg SUBCUT .[id number] 04/25/20 04/25/20 History labetalol 400 mg PO BID 04/25/20 04/25/20 History Past Med/Surg History Medical History Abnormal breast biopsy (02/01/20) Breast cancer Hypertension Surgical History H/O bilateral mastectomy (~02/2017) History of lumpectomy of left breast (02/15/20) Status post transverse rectus abdominis muscle flap breast reconstruction (~10/2017) Family History Mother Breast cancer Father Leukemia Social History Smoking Status: Former smoker Hx Alcohol Use: No Preferred Language: Zambian Beliefs That Will Affect Care: None Feels Safe at Home: Yes Review of Systems Review of Systems: All systems reviewed & are unremarkable except as noted in HPI & below Allergies Allergy/AdvReac Type Severity Reaction Status Date / Time vancomycin Allergy Severe Edema Verified 04/25/20 17:22 Face/Lips/Tongue "Red Man Syndrome" chlorhexidine Allergy Mild Unknown Verified 04/25/20 17:22 Cipro Allergy Mild Hives Verified 03/11/17 10:45 ciprofloxacin Allergy Mild Hives Verified 04/25/20 17:22 isopropyl alcohol Allergy Mild Unknown Verified 04/25/20 17:22 Penicillins Allergy Mild Hives Verified 04/25/20 17:22 Home Medications Medication Instructions Recorded Confirmed Type diazepam 5 mg tablet 5 mg PO BID 01/24/20 04/25/20 History anastrozole 1 mg tablet 1 mg PO DAILY 02/28/20 04/25/20 History calcium carbonate-vitamin D3 600 1 tab PO DAILY tab 02/28/20 04/25/20 History mg(1,500 mg)-400 unit chewable tablet cholecalciferol (vitamin D3) 25 25 mcg PO DAILY 02/28/20 04/25/20 History mcg (1,000 unit) tablet sulfamethoxazole 800 1 tab PO BID #20 tab 04/24/20 04/25/20 Rx mg-trimethoprim 160 mg tablet goserelin [Zoladex] 10.8 mg SUBCUT .[id number] 04/25/20 04/25/20 History labetalol 400 mg PO BID 04/25/20 04/25/20 History omeprazole 20 mg PO DAILY 04/25/20 04/25/20 History Patient History Medical History Abnormal breast biopsy (02/01/20) Breast cancer Hypertension Surgical History H/O bilateral mastectomy (~02/2017) History of lumpectomy of left breast (02/15/20) Status post transverse rectus abdominis muscle flap breast reconstruction (~10/2017) Family History Mother Breast cancer Father Leukemia Social History Smoking Status: Former smoker Hx Alcohol Use: No Hx Substance Use: No Preferred Language: Zambian Communication Ability: Effective Beliefs That Will Affect Care: None Current Living Situation: Family Feels Safe at Home: Yes Safety Concerns: Feels Safe At This Time Review of Systems Review of Systems: All systems reviewed & are unremarkable except as noted in HPI & below Constitutional: as per Subjective / HPI Eyes: as per Subjective / HPI Ear, Nose, Mouth, Throat: as per Subjective / HPI Respiratory: as per Subjective / HPI Cardiovascular: as per Subjective / HPI Gastrointestinal: as per Subjective / HPI Genitourinary: as per Subjective / HPI left breast cancer, recurrence Musculoskeletal: as per Subjective / HPI Integumentary: as per Subjective / HPI Neurologic: as per Subjective / HPI Psychiatric: as per Subjective / HPI Endocrine: as per Subjective / HPI Hematologic / Lymphatic: as per Subjective / HPI Allergy / Immunological: as per Subjective / HPI Physical Exam Constitutional: WD/WN, vitals as above well developed and well nourished Eyes: PERRL, conjunctivae normal, anicteric sclerae ENMT: external ear and nose normal, oropharynx normal Neck: trachea midline, no thyromegaly Respiratory: normal respiratory effort, lungs clear to auscultation normal respiratory effort Cardiovascular: RRR, no murmur, no edema Rate/Rhythm: regular rate and regular rhythm Chest (Breasts): Additional Comments: some redness and tenderness at left chest wall, no drainage now, Gastrointestinal (Abdomen): normal bowel sounds, soft, nontender, no hepatosplenomegaly Musculoskeletal: no cyanosis or clubbing, extremities motor strength 5/5 Skin: + erythema erythema on left chest wall, Neurologic: awake Psychiatric: Orientation: alert and oriented x 3 Results & Data ([facility]) Vital Signs (Past 12 Hours) Vital Signs Temp Pulse Pulse Resp BP Pulse Ox 04/26/20 07:43 36.8 C 65 18 164/81 H 99 04/26/20 07:30 55 L 04/26/20 03:05 36.5 C 53 L 16 126/80 99 04/26/20 01:42 64 Laboratory Results Abnormal lab results 04/25/20 04/25/20 04/25/20 Range/Units 16:08 16:08 16:08 WBC 4.62 L (4.8-10.8) K/uL RBC (4.2-5.4) M/uL Hgb (12.0-16.0) g/dL Hct (37-47) % MPV 10.9 H (7.4-10.4) fL Lymph # (Auto) 0.65 L (1.2-3.4) K/uL Chloride (98-107) mmol/L BUN 6 L (7-18) mg/dl BUN/Creatinine Ratio 7.4 L (10-20) Lactate 2.9 H* (0.4-2.0) mmol/L Urine Ketones (Negative) 04/25/20 04/26/20 04/26/20 Range/Units 18:26 07:14 07:14 WBC 3.34 L (4.8-10.8) K/uL RBC 4.02 L (4.2-5.4) M/uL Hgb 11.7 L (12.0-16.0) g/dL Hct 34.9 L (37-47) % MPV (7.4-10.4) fL Lymph # (Auto) 0.75 L (1.2-3.4) K/uL Chloride 112 H (98-107) mmol/L BUN 5 L (7-18) mg/dl BUN/Creatinine Ratio 6.5 L (10-20) Lactate (0.4-2.0) mmol/L Urine Ketones 1+ H (Negative) Diagnostic Findings CT SCAN OF THE CHEST WITH IV CONTRAST CLINICAL HISTORY: Chest wall cellulitis. History of breast cancer. COMPARISON STUDY: PET CT dated 01/27/2020. TECHNIQUE: Following the IV administration of 93 cc of Optiray 320, CT scan of the thorax was performed from the thoracic inlet to the upper abdomen. Images are reviewed in the axial, sagittal, and coronal planes. IV contrast was administered without complication. A dose lowering technique was utilized adhering to the principles of ALARA. CT DOSE: 216.42 mGy.cm FINDINGS: Soft tissues: There is postoperative change from bilateral mastectomy and breast reconstruction. Dermal thickening and soft tissue inflammation is identified in the lateral left breast and infraaxillary soft tissues. There is an encapsulated and peripherally enhancing fluid collection at this site seen between the skin surface and the pectoral muscle on image #122. This measures 4.8 x 2.4 x 1.5 cm. Mild dermal thickening is also noted overlying the right axillary soft tissues is seen on image #58. Thyroid: Imaged portions of the thyroid gland are normal in size and attenuation. Thoracic aorta: The thoracic aorta is normal in caliber and demonstrates standard 3-vessel arch anatomy. No dissection is seen. Pulmonary vasculature: The pulmonary trunk is normal in caliber. There are no filling defects identified in the central pulmonary vessels to indicate pulmonary embolus. Note that this examination was not protocoled for evaluation of the pulmonary arteries. Heart: A right subclavian central venous infusion port is in place. The heart is normal in size and without pericardial effusion. Lungs and pleural spaces: There is no airspace consolidation or pleural effusion. Small fat-containing Bochdalek hernias are noted at both lung bases. The trachea and central airways are clear. Subpleural scarring is noted at the left apex and may be treatment related. A low suspicion 4 mm pleural-based nodule at the left lung base is seen on image #275. Mediastinum: There is no mediastinal lymphadenopathy. Gin: Clear. Axillae: A 1.7 cm round low-attenuation structure seen in the right axilla on image #66. This could represent a tiny fluid collection versus necrotic lymph node. No additional enlarged axillary lymph nodes are suggested bilaterally. Upper abdomen: There is a small hiatal hernia. Partially visualized upper abdominal viscera is otherwise within normal limits. Skeletal structures: No lytic or blastic bony lesions are seen. There is a healed left second rib fracture. IMPRESSION: 1. There is postoperative change from bilateral mastectomy and breast reconstruction. 2. Dermal thickening and soft tissue inflammation is identified in the lateral left breast/infraaxillary soft tissues. This is consistent with the reported history of cellulitis. 3. There is a 4.8 x 2.4 x 1.5 cm encapsulated fluid collection at this site between the skin surface and the left pectoral muscle. This could represent a seroma or possibly abscess and clinical correlation will be essential. 4. There is a 1.7 cm fluid collection versus necrotic lymph node identified in the right axillary soft tissues with mild overlying dermal thickening. 5. The lungs are clear. 6. Additional findings as above.
[2020-04-26] MEDS ORDERED: CEFEPIME CONSULT ACTIVE PRN (14:41)
[2020-04-26] MEDS ORDERED: diphenhydrAMINE HCL 25 MG/10 ML UDC PO PRN (17:15)
[2020-04-26] MEDS ORDERED: EPINEPHrine INJ 1 MG/ML AMP IM PRN (17:16)
[2020-04-26] MEDS: CEFEPIME 2,000 MG in SYRINGE 0 ML IV SCH (18:06)
[2020-04-26] MEDS: metroNIDAZOLE 500 MG/100 ML BAG IV SCH ×2 (18:08→23:54)
--- NOTE | 2020-04-26 18:15 | Hospitalist Progress Note ---
Date of Service April 26, 2020 Assessment & Plan (1) Cellulitis of chest wall: Left chest wall cellulitis Possible abscess/Seroma S/P Radiation--Last received on April 17, 2020 --CT Chest:There is postoperative change from bilateral mastectomy and breast reconstruction. Dermal thickening and soft tissue inflammation is identified in the lateral left breast/infraaxillary soft tissues. This is consistent with the reported history of cellulitis. There is a 4.8 x 2.4 x 1.5 cm encapsulated fluid collection at this site between the skin surface and the left pectoral muscle. This could represent a seroma or possibly abscess and clinical correlation will be essential. There is a 1.7 cm fluid collection versus necrotic lymph node identified in the right axillary soft tissues with mild overlying dermal thickening. The lungs are clear. -Lactic acid:2.9>>1.3 COVID screen:Negative MRSA Screen:Negative Wound Cx: obtained on 04/24/20--coagulase-negative staph Blood Cx: Negative to date Received IV fluids Discontinue daptomycin, Azactam Started on IV Cefepime, Flagyl Appreciate ID, Surgery Input Afebrile today Dysuria Likely due to dehydration UA not suggestive of UTI Monitor Hypertensive urgency Likely situational and anxiety Continue labetalol Hydralazine as needed Monitor H/O metastatic recurrent left breast cancer S/P chemotherapy, bilateral mastectomy, radiation Continue anastrozole Continue Zoladex--Next due ton Jun [address] Salvatore Jon and Dr. Louie Jon GERD Continue PPI Generalized anxiety disorder Continue diazepam DVT Px: Lovenox SQ CODE STATUS Full code Disposition Expected discharge home when medically stable Admission and Anticipated Discharge Date Admission Date: April 25, 2020 Subjective Patient is seen and examined at bedside Still has intermittent mild chest pain associated with tenderness Itching decreased, chills resolved Denies fever, shortness of breath, dizziness, nausea, abdominal pain Offers no other complaints Appreciate ID input Review of Systems Review of Systems: All systems reviewed & are unremarkable except as noted in HPI & below Physical Exam Physical Exam: Physical Exam: Vitals signs as noted above General Appearance:Moderately built and nourished, no apparent distress Head: normocephalic, Atraumatic Eyes: normal inspection, EOMI, PERRL Neck: supple, Trachea midline Respiratory/Chest: Normal breath sounds, CTA, No accessory muscle use + Left inferior axillary region, mucopurulent wound, +Tenderness, Minimal erythema Cardiovascular: S1, S2, No murmur Abdomen/GI:Soft, Non tender, Bowel sounds present Extremities/Musculoskelatal:normal inspection, no edema Neurologic/Psych:AAOX3, grossly no focal neurological deficits Skin: normal color, warm Results & Data Results & Data ([facility]) Vital Signs (Past 12 Hours) Vital Signs Temp Pulse Pulse Resp BP Pulse Ox 04/26/20 15:42 37.3 C 64 18 182/81 H 100 04/26/20 07:43 36.8 C 65 18 164/81 H 99 04/26/20 07:30 55 L Laboratory Results Short CBC 04/26/20 Range/Units 07:14 WBC 3.34 L (4.8-10.8) K/uL Hgb 11.7 L (12.0-16.0) g/dL Hct 34.9 L (37-47) % Plt Count 229 (130-400) K/uL BMP 04/26/20 07:14 Sodium 143 Potassium 3.8 Chloride 112 H Carbon Dioxide 26 BUN 5 L Creatinine 0.78 Glucose 85 Calcium 9.3 Cardiac Enzymes 04/25/20 Range/Units 16:08 Total Creatine Kinase 144 (26-192) U/L Urine 04/25/20 Range/Units 18:26 Urine Color Yellow Urine Appearance Clear (Clear) Urine pH 5.5 (4.5-7.5) Ur Specific [place] 1.014 (1.000-1.030) Urine Protein Negative (Negative) Urine Glucose (UA) Negative (Negative)
[2020-04-26] MEDS ORDERED: DAPTOmycin 225 MG in SYRINGE 0 ML IV SCH (20:00)
[2020-04-27] MEDS: CEFEPIME 2,000 MG in SYRINGE 0 ML IV SCH ×2 (04:01→15:38)
[2020-04-27] MEDS: CHOLECALCIFEROL 1,000 UNITS 25 MCG TAB PO SCH (07:47)
[2020-04-27] MEDS: metroNIDAZOLE 500 MG/100 ML BAG IV SCH ×2 (07:47→15:43)
[2020-04-27] MEDS: LABETALOL HCL 200 MG TAB PO SCH ×2 (07:47→20:47)
[2020-04-27] MEDS: PANTOprazole 40 MG TAB PO SCH (07:47)
[2020-04-27] MEDS: ANASTROZOLE 1 MG TAB PO SCH (07:47)
[2020-04-27] MEDS: CALCIUM 600MG + VIT D 400 IU TAB PO SCH (07:47)
[2020-04-27] MEDS: ENOXAPARIN INJ 40 MG/0.4 ML SYR SQ SCH (07:48)
[2020-04-27] MEDS: diazePAM 5 MG TABLET PO SCH ×2 (07:53→20:48)
[2020-04-27 07:59] LABS: Basophils # (auto) 0.03 K/uL (0-0.2); Basophils % (auto) 0.7 %; Eosinophils # (auto) 0.31 K/uL (0-0.5); Eosinophils % (auto) 7.1 %; Hematocrit (blood only) 35.1 % (37-47); Hemoglobin 11.7 g/dL (12.0-16.0); Lymphocytes # (auto) 0.67 K/uL (1.2-3.4); Lymphocytes % (auto) 15.4 %; Mean Corpuscular Hemoglobin 28.9 pg (25-34); Mean Corpuscular Hgb Conc 33.3 g/dL (32-36); Mean Corpuscular Volume 86.7 fL (80-100); Mean Platelet Volume 10.6 fL (7.4-10.4); Monocytes # (auto) 0.38 K/uL (0.11-0.59); Monocytes % (auto) 8.7 %; Neutrophils # (auto) 2.97 K/uL (1.4-6.5); Neutrophils % (auto) 68.1 %; Platelet Count 245 K/uL (130-400); RDW Coefficient of Variation 13.4 % (11.5-14.5); RDW Standard Deviation 42.9 fL (36.4-46.3); Red Blood Count 4.05 M/uL (4.2-5.4); White Blood Count 4.36 K/uL (4.8-10.8)
[2020-04-27 08:30] LABS: Calcium 9.3 mg/dl (8.5-10.1); Creatinine Clr Calc Pharmacy 82.7 ml/min; Est GFR (African American) 112.4; Est GFR (Non-African American) 96.9; Potassium 3.9 mmol/L (3.5-5.1)
--- NOTE | 2020-04-27 10:52 | Surgery Progress Note ---
Date of Service F/U left chest wall infection, pt feels better, no fever, no chills, normal WBC. April 27, 2020 Assessment & Plan (1) Cellulitis of chest wall: pt is a 45 year-old female who was admitted to hospital for left chest wall infection after radiation IMP: left chest wall infection base on physical exam and labs, CT scan, left chest wall cellulitis most, could not R/O fluid collection or abscess, base on the radiation history, once make incision on chest wall, which is difficulty to heal, I recommend conservative treatment first, IV antibiotic, F/U 12-24 hours, pt may need I/D on left chest wall if pt's symptoms are getting worse. pt agrees with the plan, I answered all questions, will F/U 04/27/2020 10:47am doing better base on fluid collection on left chest wall, recommend international radiologist consult for possible U/S guidance needle aspiration the fluid to see is seroma or infection, for next step treatment, consult breast surgeon , transfer higher level care, D/W hospitalist, and pt, they agree with the plan, continue iv antibiotic treatment, Admission and Anticipated Discharge Date Admission Date: April 25, 2020 Subjective Patient is seen and examined at bedside Still has intermittent mild chest pain associated with tenderness Itching decreased, chills resolved Denies fever, shortness of breath, dizziness, nausea, abdominal pain Offers no other complaints Appreciate ID input Review of Systems Constitutional: as per Subjective / HPI Eyes: as per Subjective / HPI Ear, Nose, Mouth, Throat: as per Subjective / HPI Respiratory: as per Subjective / HPI Cardiovascular: as per Subjective / HPI Gastrointestinal: as per Subjective / HPI Genitourinary: as per Subjective / HPI left breast cancer, recurrence Musculoskeletal: as per Subjective / HPI Integumentary: as per Subjective / HPI Neurologic: as per Subjective / HPI Psychiatric: as per Subjective / HPI Endocrine: as per Subjective / HPI Hematologic / Lymphatic: as per Subjective / HPI Allergy / Immunological: as per Subjective / HPI Physical Exam Constitutional: WD/WN, vitals as above well developed and well nourished Eyes: PERRL, conjunctivae normal, anicteric sclerae ENMT: external ear and nose normal, oropharynx normal Neck: trachea midline, no thyromegaly Respiratory: normal respiratory effort, lungs clear to auscultation normal respiratory effort Cardiovascular: RRR, no murmur, no edema Rate/Rhythm: regular rate and regular rhythm Chest (Breasts): Additional Comments: the left side chest wall infection is much better than yesterday, no redness, no drainage, no tenderness, Gastrointestinal (Abdomen): normal bowel sounds, soft, nontender, no hepatosplenomegaly Musculoskeletal: no cyanosis or clubbing, extremities motor strength 5/5 Skin: + erythema Neurologic: awake Psychiatric: Orientation: alert and oriented x 3 Results & Data ([facility]) Vital Signs (Past 12 Hours) Vital Signs Temp Pulse Pulse Resp BP Pulse Ox 04/27/20 08:00 59 L 04/27/20 06:59 37 C 72 16 167/82 H 100 04/27/20 04:39 36.5 C 50 L 16 149/81 H 100 04/26/20 23:17 53 L
[2020-04-27] MEDS: diphenhydrAMINE Capsule 25 MG CAP PO PRN (16:07)
--- NOTE | 2020-04-27 18:29 | Hospitalist Progress Note ---
Date of Service April 27, 2020 Assessment & Plan (1) Cellulitis of chest wall: Left chest wall cellulitis Possible abscess/Seroma S/P Radiation--Last received on April 17, 2020 --CT Chest:There is postoperative change from bilateral mastectomy and breast reconstruction. Dermal thickening and soft tissue inflammation is identified in the lateral left breast/infraaxillary soft tissues. This is consistent with the reported history of cellulitis. There is a 4.8 x 2.4 x 1.5 cm encapsulated fluid collection at this site between the skin surface and the left pectoral muscle. This could represent a seroma or possibly abscess and clinical correlation will be essential. There is a 1.7 cm fluid collection versus necrotic lymph node identified in the right axillary soft tissues with mild overlying dermal thickening. The lungs are clear. -Lactic acid:2.9>>1.3 COVID screen:Negative MRSA Screen:Negative Wound Cx: obtained on 04/24/20--coagulase-negative staph Blood Cx: Negative to date Received IV fluids Discontinue daptomycin, Azactam Continue IV Cefepime, Flagyl Day #2 Appreciate ID, Surgery Input Repeat CT chest on 04/29/2020. Needs follow-up with surgery Dr. Morton as outpatient for aspiration of fluid collection as outpatient. Dysuria Likely due to dehydration UA not suggestive of UTI Resolved Hypertensive urgency Likely situational and anxiety Continue labetalol Hydralazine as needed Monitor H/O metastatic recurrent left breast cancer S/P chemotherapy, bilateral mastectomy, radiation Continue anastrozole Continue Zoladex--Next due ton Jun [address] Salvatore Jon and Dr. Louie Jon GERD Continue PPI Generalized anxiety disorder Continue diazepam DVT Px: Lovenox SQ CODE STATUS Full code Disposition Expected discharge home when medically stable Admission and Anticipated Discharge Date Admission Date: April 25, 2020 Subjective Patient is seen and examined at bedside No new complaints States feeling better today Discussed with surgery--Dr. Clark and Dr. Morton Denies fever, shortness of breath, dizziness, nausea, abdominal pain Tolerated current IV antibiotics Review of Systems Review of Systems: All systems reviewed & are unremarkable except as noted in HPI & below Physical Exam Physical Exam: Physical Exam: Vitals signs as noted above General Appearance:Moderately built and nourished, no apparent distress Head: normocephalic, Atraumatic Eyes: normal inspection, EOMI, PERRL Neck: supple, Trachea midline Respiratory/Chest: Normal breath sounds, CTA, No accessory muscle use + Left inferior axillary region, mucopurulent wound, mild Tenderness, No significant erythema Cardiovascular: S1, S2, No murmur Abdomen/GI:Soft, Non tender, Bowel sounds present Extremities/Musculoskelatal:normal inspection, no edema Neurologic/Psych:AAOX3, grossly no focal neurological deficits Skin: normal color, warm Results & Data Results & Data ([facility]) Vital Signs (Past 12 Hours) Vital Signs Temp Pulse Pulse Pulse Resp BP Pulse Ox 04/27/20 15:54 36.8 C 66 18 164/95 H 96 04/27/20 11:30 36.8 C 60 18 177/107 H 98 04/27/20 08:00 59 L 04/27/20 06:59 37 C 72 16 167/82 H 100 Laboratory Results Short CBC 04/27/20 Range/Units 07:29 WBC 4.36 L (4.8-10.8) K/uL Hgb 11.7 L (12.0-16.0) g/dL Hct 35.1 L (37-47) % Plt Count 245 (130-400) K/uL BMP 04/27/20 07:29 Sodium 144 Potassium 3.9 Chloride 111 H Carbon Dioxide 26 BUN 9 Creatinine 0.75 Glucose 92 Calcium 9.3
[2020-04-28] MEDS: metroNIDAZOLE 500 MG/100 ML BAG IV SCH ×3 (00:28→17:37)
[2020-04-28] MEDS: CEFEPIME 2,000 MG in SYRINGE 0 ML IV SCH ×2 (04:08→17:36)
[2020-04-28] MEDS: diphenhydrAMINE Capsule 25 MG CAP PO PRN (04:08)
[2020-04-28] MEDS: CALCIUM 600MG + VIT D 400 IU TAB PO SCH (17:35)
[2020-04-28] MEDS: CHOLECALCIFEROL 1,000 UNITS 25 MCG TAB PO SCH (17:35)
[2020-04-28] MEDS: PANTOprazole 40 MG TAB PO SCH (17:35)
[2020-04-28] MEDS: diazePAM 5 MG TABLET PO SCH ×2 (17:35→21:50)
[2020-04-28] MEDS: ENOXAPARIN INJ 40 MG/0.4 ML SYR SQ SCH (17:35)
[2020-04-28] MEDS: LABETALOL HCL 200 MG TAB PO SCH ×2 (17:35→21:50)
[2020-04-28] MEDS: ANASTROZOLE 1 MG TAB PO SCH (17:44)
[2020-04-28 19:34] LABS: Appearance Urine Clear (Clear); Bilirubin Urine Negative (Negative); Color Urine Yellow; Glucose Urine UA Negative (Negative); Ketones Urine Negative (Negative); Protein Urine Negative (Negative); Specific Gravity Urine 1.016 (1.000-1.030); pH Urine 5.5 (4.5-7.5)
[2020-04-28 19:35] LABS: Blood Urine Negative (Negative); Leukocyte Esterase Urine Negative (Negative); Nitrite Urine Negative (Negative); Urobilinogen Urine Negative (Negative)
--- NOTE | 2020-04-28 20:46 | Hospitalist Progress Note ---
Date of Service April 28, 2020 Assessment & Plan (1) Cellulitis of chest wall: Left chest wall cellulitis Possible abscess/Seroma S/P Radiation--Last received on April 17, 2020 --CT Chest:There is postoperative change from bilateral mastectomy and breast reconstruction. Dermal thickening and soft tissue inflammation is identified in the lateral left breast/infraaxillary soft tissues. This is consistent with the reported history of cellulitis. There is a 4.8 x 2.4 x 1.5 cm encapsulated fluid collection at this site between the skin surface and the left pectoral muscle. This could represent a seroma or possibly abscess and clinical correlation will be essential. There is a 1.7 cm fluid collection versus necrotic lymph node identified in the right axillary soft tissues with mild overlying dermal thickening. The lungs are clear. -Lactic acid:2.9>>1.3 COVID screen:Negative MRSA Screen:Negative Wound Cx: obtained on 04/24/20--coagulase-negative staph Blood Cx: Negative to date Received IV fluids Discontinue daptomycin, Azactam Continue IV Cefepime, Flagyl Day #3 Appreciate ID, Surgery Input Repeat CT chest tomorrow Needs follow-up with surgery Dr. Morton as outpatient for aspiration of fluid collection as outpatient. Continue current medication Dysuria Likely due to dehydration UA not suggestive of UTI Resolved Hypertensive urgency Likely situational and anxiety Continue labetalol Hydralazine as needed Monitor H/O metastatic recurrent left breast cancer S/P chemotherapy, bilateral mastectomy, radiation Continue anastrozole Continue Zoladex--Next due ton Jun [address] Salvatore Jon and Dr. Noble Jon GERD Continue PPI Generalized anxiety disorder Continue diazepam DVT Px: Lovenox SQ CODE STATUS Full code Disposition Expected discharge home when medically stable Admission and Anticipated Discharge Date Admission Date: April 25, 2020 Subjective Patient is seen and examined at bedside Reports noticing rash on left side of the chest at the site of the tape States having headache today No other complaints Denies fever, shortness of breath, dizziness, nausea, abdominal pain Review of Systems Review of Systems: All systems reviewed & are unremarkable except as noted in HPI & below Physical Exam Physical Exam: Physical Exam: Vitals signs as noted above General Appearance:Moderately built and nourished, no apparent distress Head: normocephalic, Atraumatic Eyes: normal inspection, EOMI, PERRL Neck: supple, Trachea midline Respiratory/Chest: Normal breath sounds, CTA, No accessory muscle use + Left inferior axillary region, mucopurulent wound, mild Tenderness, No significant erythema Cardiovascular: S1, S2, No murmur Abdomen/GI:Soft, Non tender, Bowel sounds present Extremities/Musculoskelatal:normal inspection, no edema Neurologic/Psych:AAOX3, grossly no focal neurological deficits Skin: normal color, warm Results & Data Results & Data ([facility]) Vital Signs (Past 12 Hours) Vital Signs Temp Pulse Pulse Pulse Resp BP Pulse Ox 04/28/20 03:10 36.8 C 76 18 169/80 H 100 04/27/20 23:48 50 L 04/27/20 23:28 36.5 C 60 20 131/78 96 04/27/20 20:45 65 Intake and Output 04/28/20 04/28/20 04/28/20 06:59 14:59 22:59 Intake Total 100 / 975 103.333 / 103.333 Balance 100 / 975 103.333 / 103.333 Intake: IV 100 / 300 103.333 / 103.333 FLAGYL 500 mg In 100 ml @ 100 100 / 300 103.333 / 103.333 mls/hr IV Q8H [facility] Rx#:[id number] Laboratory Results Urine 04/28/20 Range/Units 14:20 Urine Color Yellow Urine Appearance Clear (Clear) Urine pH 5.5 (4.5-7.5) Ur Specific [place] 1.016 (1.000-1.030) Urine Protein Negative (Negative) Urine Glucose (UA) Negative (Negative)
[2020-04-28] MEDS: HYDROCORTISONE 1% CRM 30 GM TUBE EXT SCH (21:50)
[2020-04-29] MEDS: metroNIDAZOLE 500 MG/100 ML BAG IV SCH ×2 (01:33→08:13)
[2020-04-29] MEDS: diphenhydrAMINE Capsule 25 MG CAP PO PRN (03:43)
[2020-04-29] MEDS: CEFEPIME 2,000 MG in SYRINGE 0 ML IV SCH (04:12)
--- NOTE | 2020-04-29 07:36 | CT Scan Report ---
CT OF THE CHEST WITHOUT IV CONTRAST CLINICAL HISTORY: Chest wall cellulitis. Follow-up fluid collections. COMPARISON STUDY: Chest CT April 25, 2020. CT DOSE: 216.36 mGy.cm TECHNIQUE: Axial images of the chest were obtained without IV contrast. Images were reviewed in the axial, sagittal, and coronal planes. IV contrast was not administered for this examination. Automat ed exposure control was utilized for the study. A dose lowering technique was utilized adhering to t he principles of ALARA. FINDINGS: A right subclavian [id number] is in place. No enlarged axillary, mediastinal or hilar l ymph nodes are present. The size the heart is normal. No pericardial effusion. No pneumothorax or ple ural effusion is noted. The central airways are patent. There are no suspicious pulmonary nodules. Th ere is no consolidation to suggest pneumonia. No suspicious lesions within the bony thorax are noted. There are postoperative findings from bilateral mastectomy and breast reconstruction. Note is made o f left chest wall skin thickening and subcutaneous infiltration which is similar to CT of April 25, 2020. A subjacent fluid collection within the lateral left chest wall, lateral to the left breast re construction has slightly decreased in size since prior CT. This now measures 4.2 x 2.1 x 1.1 cm. It previously measured 4.8 x 2.4 x 1.5 cm. An additional suspected 1.6 cm right axillary fluid collectio n has not significantly changed prior examination. There is mild right axillary skin thickening and s ubcutaneous infiltration. Upper abdomen is unremarkable on this unenhanced examination. IMPRESSION: 1. Mild decrease in size of a 4.2 x 2.1 x 1.1 cm left lateral chest wall fluid collection since chest CT of April 25, 2020. This could reflect a seroma or abscess. No significant change in overlying c ellulitis. 2. No significant change in a 1.6 cm suspected fluid collection within the right axilla with overlyin g cellulitis since prior examination. A necrotic lymph node could appear similar although is consider ed less likely. ACT 112: Negative or not required by law. Electronically signed by: David Gordon M.D. 04/29/2020 7:35 AM
[2020-04-29 07:40] LABS: BUN Creatinine Ratio 18.3 (10-20); Calcium 9.2 mg/dl (8.5-10.1); Creatinine Clr Calc Pharmacy 92.5 ml/min; Est GFR (African American) 123.9; Est GFR (Non-African American) 106.9
[2020-04-29] MEDS: ANASTROZOLE 1 MG TAB PO SCH (08:14)
[2020-04-29] MEDS: PANTOprazole 40 MG TAB PO SCH (08:14)
[2020-04-29] MEDS: ENOXAPARIN INJ 40 MG/0.4 ML SYR SQ SCH (08:14)
[2020-04-29] MEDS: LABETALOL HCL 200 MG TAB PO SCH (08:14)
[2020-04-29] MEDS: CHOLECALCIFEROL 1,000 UNITS 25 MCG TAB PO SCH (08:14)
[2020-04-29] MEDS: CALCIUM 600MG + VIT D 400 IU TAB PO SCH (08:14)
[2020-04-29] MEDS: HYDROCORTISONE 1% CRM 30 GM TUBE EXT SCH (08:15)
[2020-04-29] MEDS: diazePAM 5 MG TABLET PO SCH (08:21)
--- NOTE | 2020-04-29 10:39 | Surgery Progress Note ---
Date of Service April 29, 2020 Assessment & Plan (1) Cellulitis of chest wall: CT improved slightly min drainage signs of healing/ viability can d/c on po atbx from surg stdpt orders to give some dressing supplies f/u with Dr Morton Admission and Anticipated Discharge Date Admission Date: April 25, 2020 Subjective awake, alert, afeb Results & Data ([facility]) Vital Signs (Past 12 Hours) Vital Signs Temp Pulse Resp BP Pulse Ox 04/29/20 07:31 36.6 C 71 18 177/106 H 97 PG Care Time/CCT Total # of Minutes Spent Total Time Spent with Patient: Total time spent is greater than 50% in c oordination of care (as documented) at patient's floor/unit and/or counseling patient: Coding Level of Care Code 92429 Subseq Hosp Care Lvl 2 Diagnoses Cellulitis of chest wall L03.313
[2020-04-29] MEDS ORDERED: LOSARTAN POTASSIUM 25 MG TAB PO SCH (10:45)
[2020-04-29] MEDS ORDERED: CLINDAMYCIN HCL 150 MG CAP PO SCH (12:30)
[2020-04-29] MEDS ORDERED: LACTOBACILLUS ACIDOPHILUS 1 GM PACK PO SCH (13:00)
--- NOTE | 2020-04-29 14:09 | Hospitalist Progress Note ---
Date of Service April 29, 2020 Assessment & Plan (1) Cellulitis of chest wall: Left chest wall cellulitis Possible abscess/Seroma S/P Radiation--Last received on April 17, 2020 --CT Chest:There is postoperative change from bilateral mastectomy and breast reconstruction. Dermal thickening and soft tissue inflammation is identified in the lateral left breast/infraaxillary soft tissues. This is consistent with the reported history of cellulitis. There is a 4.8 x 2.4 x 1.5 cm encapsulated fluid collection at this site between the skin surface and the left pectoral muscle. This could represent a seroma or possibly abscess and clinical correlation will be essential. There is a 1.7 cm fluid collection versus necrotic lymph node identified in the right axillary soft tissues with mild overlying dermal thickening. The lungs are clear. --04/29/20: Repeat CT chest: Mild decrease in size of a 4.2 x 2.1 x 1.1 cm left lateral chest wall fluid collection since chest CT of April 25, 2020. This could reflect a seroma or abscess. No significant change in overlying cellulitis. No significant change in a 1.6 cm suspected fluid collection within the right axilla with overlying cellulitis since prior examination. A necrotic lymph node could appear similar although is considered less likely. -Lactic acid:2.9>>1.3 COVID screen:Negative MRSA Screen:Negative Wound Cx: obtained on 04/24/20--coagulase-negative staph Blood Cx: Negative to date Received IV fluids Discontinue daptomycin, Azactam Continue IV Cefepime, Flagyl Day #4 Appreciate ID, Surgery Input Needs follow-up with surgery Dr. Morton as outpatient for aspiration of fluid collection on 05/03/20 as scheduled Continue wound care Plan to transition to oral antibiotics upon discharge Dysuria Likely due to dehydration UA not suggestive of UTI Resolved Hypertensive urgency Likely situational and anxiety Continue labetalol Added losartan Hydralazine as needed Monitor H/O metastatic recurrent left breast cancer S/P chemotherapy, bilateral mastectomy, radiation Continue anastrozole Continue Zoladex--Next due on Jun [address] Salvatore Jon and Dr. Noble Jon GERD Continue PPI Generalized anxiety disorder Continue diazepam DVT Px: Lovenox SQ CODE STATUS Full code Disposition Expected discharge home when medically stable Admission and Anticipated Discharge Date Admission Date: April 25, 2020 Subjective Patient is seen and examined at bedside States feeling much better today Rash, Itching resolved Chest pain/Discomfort resolved No new complaints Denies fever, shortness of breath, dizziness, nausea, abdominal pain Eager to get discharged Review of Systems Review of Systems: All systems reviewed & are unremarkable except as noted in HPI & below Physical Exam Physical Exam: Physical Exam: Vitals signs as noted above General Appearance:Moderately built and nourished, no apparent distress Head: normocephalic, Atraumatic Eyes: normal inspection, EOMI, PERRL Neck: supple, Trachea midline Respiratory/Chest: Normal breath sounds, CTA, No accessory muscle use + Left inferior axillary region, mucopurulent wound, No significant erythema Cardiovascular: S1, S2, No murmur Abdomen/GI:Soft, Non tender, Bowel sounds present Extremities/Musculoskelatal:normal inspection, no edema Neurologic/Psych:AAOX3, grossly no focal neurological deficits Skin: normal color, warm Results & Data Results & Data ([facility]) Vital Signs (Past 12 Hours) Vital Signs Temp Pulse Resp BP Pulse Ox 04/29/20 07:31 36.6 C 71 18 177/106 H 97 Laboratory Results [facility] 04/29/20 06:30 Sodium 142 Potassium 4.0 Chloride 109 H Carbon Dioxide 29 BUN 12 Creatinine 0.67 Glucose 89 Calcium 9.2 Urine 04/28/20 Range/Units 14:20 Urine Color Yellow Urine Appearance Clear (Clear) Urine pH 5.5 (4.5-7.5) Ur Specific [place] 1.016 (1.000-1.030) Urine Protein Negative (Negative) Urine Glucose (UA) Negative (Negative)
--- NOTE | 2020-04-29 14:17 | Discharge Summary ---
Date of Service April 29, 2020 Admission HPI Per Admitting Provider Patient is a 45-year-old female with history of metastatic left breast cancer, hypertension, generalized anxiety disorder and other medical problems presents with history of left-sided chest wall wound. Patient had complex medical history, she was diagnosed to have metastatic left breast carcinoma in 2017. She completed chemotherapy, S/P bilateral mastectomy followed by breast reconstruction. Also completed radiation therapy last received on April 17, 2020. After having her last radiation therapy she noticed black eschar on her left side of her chest which later peeled off. Over the weekend, patient n oticed to have seeping purulent discharge from the area and was evaluated by radiation oncologist who recommended to be started on Bactrim on Thursday. She admits to having left-sided chest tenderness, chills, and feels uncomfortable with stabbing intermittent pain in the area. On further evaluation of the wound today, patient was instructed to be evaluated in ED for possible IV antibiotics. She also states noting chest wall to be erythematous which is slightly worse since 2 days and reports associated itching. She admits to have dysuria, but denies any urinary frequency or hematuria. Reports having chronic intermittent abdominal discomfort which is unchanged. She had an episode of diarrhea this morning which currently resolved. Denies any history of SOB, palpitations, orthopnea, PND, dizziness, pedal edema, diaphoresis, cough, wheezing, hemoptysis, headache, numbness, change in vision, nausea, vomiting, blood in stools. Admission Exam Per Admitting Provider Physical Exam: Vitals signs as noted above General Appearance:Moderately built and nourished, no apparent distress Head: normocephalic, Atraumatic Eyes: normal inspection, EOMI, PERRL Neck: supple, Trachea midline Respiratory/Chest: Normal breath sounds, CTA, No accessory muscle use + Left inferior axillary region, open mucopurulent wound, +Tenderness, Mild erythema Cardiovascular: S1, S2, No murmur Abdomen/GI:Soft, Non tender, Bowel sounds present Extremities/Musculoskelatal:normal inspection, no edema Neurologic/Psych:AAOX3, grossly no focal neurological deficits Skin: normal color, warm Principal Diagnosis Left chest wall cellulitis Possible abscess/Seroma Uncontrolled hypertension Discharge Data Allergies Allergy/AdvReac Type Severity Reaction Status Date / Time chlorhexidine Allergy Mild Unknown Verified 04/25/20 17:22 Cipro Allergy Mild Hives Verified 03/11/17 10:45 ciprofloxacin Allergy Mild Hives Verified 04/25/20 17:22 isopropyl alcohol Allergy Mild Unknown Verified 04/25/20 17:22 Penicillins Allergy Mild Hives Verified 04/25/20 17:22 vancomycin AdvReac Mild "Red Man Verified 04/26/20 17:23 Syndrome" Consultations 04/25/20 17:05 ED Decision to Admit Stat 04/25/20 20:58 Consult General Surgery Routine Consult Infectious Diseases Routine Procedures Performed --CT Chest:There is postoperative change from bilateral mastectomy and breast reconstruction. Dermal thickening and soft tissue inflammation is identified in the lateral left breast/infraaxillary soft tissues. This is consistent with the reported history of cellulitis. There is a 4.8 x 2.4 x 1.5 cm encapsulated fluid collection at this site between the skin surface and the left pectoral muscle. This could represent a seroma or possibly abscess and clinical correlation will be essential. There is a 1.7 cm fluid collection versus necrotic lymph node id entified in the right axillary soft tissues with mild overlying dermal thickening. The lungs are clear. --04/29/20: Repeat CT chest: Mild decrease in size of a 4.2 x 2.1 x 1.1 cm left lateral chest wall fluid collection since chest CT of April 25, 2020. This could reflect a seroma or abscess. No significant change in overlying cellulitis. No significant change in a 1.6 cm suspected fluid collection within the right axilla with overlying cellulitis since prior examination. A necrotic lymph node could appear similar although is considered less likely. Ordered Studies 04/25/20 17:21 CT chest w con Stat 04/29/20 07:00 CT chest wo con Routine Hospital Course (1) Cellulitis of chest wall: Left chest wall cellulitis Possible abscess/Seroma S/P Radiation--Last received on April 17, 2020 --CT Chest:There is postoperative change from bilateral mastectomy and breast reconstruction. Dermal thickening and soft tissue inflammation is identified in the lateral left breast/infraaxillary soft tissues. This is consistent with the reported history of cellulitis. There is a 4.8 x 2.4 x 1.5 cm encapsulated fluid collection at this site between the skin surface and the left pectoral muscle. This could represent a seroma or possibly abscess and clinical correlation will be essential. There is a 1.7 cm fluid collection versus necrotic lymph node identified in the right axillary soft tissues with mild overlying dermal thickening. The lungs are clear. --04/29/20: Repeat CT chest: Mild decrease in size of a 4.2 x 2.1 x 1.1 cm left lateral chest wall fluid collection since chest CT of April 25, 2020. This could reflect a seroma or abscess. No significant change in overlying cellulitis. No significant change in a 1.6 cm suspected fluid collection within the right axilla with overlying cellulitis since prior examination. A necrotic lymph node could appear similar although is considered less likely. -Lactic acid:2.9>>1.3 COVID screen:Negative MRSA Screen:Negative Wound Cx: obtained on 04/24/20--coagulase-negative staph Blood Cx: Negative to date Received IV fluids Discontinue daptomycin, Azactam Continue IV Cefepime, Flagyl Day #4 Appreciate ID, Surgery Input Needs follow-up with surgery Dr. Morton as outpatient for aspiration of fluid collection on 05/03/20 as scheduled Continue wound care Plan to transition to oral antibiotics upon discharge Dysuria Likely due to dehydration UA not suggestive of UTI Resolved Hypertensive urgency Likely situational and anxiety Continue labetalol Added losartan Hydralazine as needed Monitor H/O metastatic recurrent left breast cancer S/P chemotherapy, bilateral mastectomy, radiation Continue anastrozole Continue Zoladex--Next due on Jun [address] Salvatore Jon and Dr. Noble Jon GERD Continue PPI Generalized anxiety disorder Continue diazepam DVT Px: Lovenox SQ CODE STATUS Full code Disposition Expected discharge home when medically stable Total Time Total Time Spent Total Time Spent (In Minutes): 40 minutes Discharge Plan Discharge Items Patient Disposition: Home - Self-Care Reason For Visit: CHESTWALL CELLULITIS Discharge Diagnosis: Left chest wall cellulitis Possible abscess/Seroma Uncontrolled hypertension Activity: Per Instructions section Exercise/Sports: Gradually increase as tolerated Non-emergency contact: Primary Care Provider and Surgeon Call non-emergency contact if: you have any medication questions, your symptoms worsen, your pain is not controlled, your pain is worsening, your pain is unusual for you, your pain is concerning for you, you have a fever, your wound has increased redness, your wound has increased drainage and your wound pain has increased Follow-up/Referrals: Carmelo Antony MD [Primary Care Provider] - Diet: Heart Healthy Addtl Attending Provider Instructions: Follow-up with your primary care physician Dr. Llanos in 1 week as advised Follow-up with your Surgeon on 05/03/20 as scheduled Complete the antibiotic course as prescribed. Continue local wound care as advised Your final Blood cultures are pending at the time of discharge. Follow up with your physician for results Seek immediate medical attention if your symptoms reoccur or worsen Pending Studies at Discharge: Yes Studies:: Blood Cultures Stand-Alone Forms: My [facility], Smoking Cessation Medications and DC Order Prescriptions: New clindamycin HCl 150 mg Capsule 150 mg PO Q6 7 Days Qty: 28 RF: 0 losartan 25 mg Tablet 25 mg PO QAM Qty: 30 RF: 1 Floranex 100 million cell Granules In Packet 1 g PO TIDM 10 Days Qty: 30 RF: 0 Continued diazepam 5 mg tablet 5 mg PO BID RF: 0 Calcium 600 with Vitamin D3 600 mg(1,500mg) -400 unit tablet,chewable 1 tab PO DAILY RF: 0 cholecalciferol (vitamin D3) 25 mcg (1,000 unit) tablet 25 mcg PO DAILY RF: 0 anastrozole [Arimidex] 1 mg tablet 1 mg PO DAILY RF: 0 labetalol 200 mg tablet 400 mg PO BID RF: 0 Zoladex 10.8 mg Implant 10.8 mg SUBCUT .[id number] RF: 0 omeprazole 20 mg Capsule,Delayed Release(Dr/Ec) 20 mg PO DAILY RF: 0 Discontinued sulfamethoxazole-trimethoprim [Bactrim DS] 800-160 mg tablet 1 tab PO BID Qty: 20 RF: 0 Discharge Orders: Discharge Order (Routine); Ordered 04/29/20 Ordered By: Brayan Harp Admission Data Admit Date/Time: 04/25/20 18:18 Attending Provider: Brayan Harp Admit Provider: Brayan Harp Primary Care Provider: Carmelo Antony Other Providers: Brayan Harp ; Magdy Flores ; Liyah Walker ; Josefina Morton ; Ruddy Yang ; Maikel Bhatt ; Gricelda Morin ; Andie Wisdom ; Diallo Garcia Jr ; Black Clark ; Dave Huber ; Ella Piper ; Kiran Oh ; Richa Maurice ; Ehsan Little I. ; Mariano Irizarry II ; Meri Szymanski ; Magdy Orellana Other Interventions: Discharge Summary Assessment (RN) Last Done: 04/29/20 14:19
== END 2020-04-29 15:15 | disposition home or self-care (01) | DRG 603 ==
LOC: ED 14:08 → 2W 18:18